=== PATIENT | female | born 1970 | race Caucasian/White ===

== ENCOUNTER 2021-07-16 13:57 | Emergency (ER) | payer BC ==
[~2021-07-16] VITALS: Ht 162.6 cm; Wt 85.0 kg
[2021-07-16] MEDS ORDERED: IBUP-1986 PO (15:25)
[2021-07-16 15:34] VITALS: BP 112/70
== END 2021-07-16 15:36 | disposition home or self-care (01) ==
LOC: ER 13:58
DX: S86.912A Strain of unspecified muscle(s) and tendon(s) at lower leg level, left leg, initial encounter (principal); G43.909 Migraine, unspecified, not intractable, without status migrainosus; G47.419 Narcolepsy without cataplexy; X58.XXXA Exposure to other specified factors, initial encounter; Y93.89 Activity, other specified; Y92.89 Other specified places as the place of occurrence of the external cause; Y99.8 Other external cause status
CPT/HCPCS: 93971; 99284